=== PATIENT | male | born 1995 | race Caucasian/White ===

== ENCOUNTER 2025-07-07 13:48 | Emergency (ER) | payer OTHER, SELFPAY ==
--- OUTSIDE RECORDS SUMMARY | 2025-06-29 20:18 | XMS_ITS | Encounter Summary ---
Author Organization [facility] tem Address [facility]-[id number] [address] [place] [address] Care Team Providers Care County Nurse Name Role Phone No Pcp, No Pcp Primary Care Provider Unavailabl e Reason for Referral * Consultation (Urgent) - Pending Review Specialty Diagnoses / Procedures Referred By Ortega begr Referred To Contact Wound Care Diagnoses Ankle wound, left, initial encounter Sandy Dumont, INSERT MOLDING OPERATOR-FLEXIBLE MACHINING SYSTEM MACHINIST [address] [place] [address] Phone: tel: fax: Duyen Choudhury, INSERT MOLDING OPERATOR-FLEXIBLE MACHINING SYSTEM MACHINIST [address] [address] Phone: tel: fax: Referral ID Status Reason Start Date Expiration Date Visits Requested Visits Authorized [id number] Pending Review Specialty Services Required 06/29/2025 06/29/2026 1 1 Electronically signed by Sandy Dumont, INSERT MOLDING OPERATOR-FLEXIBLE MACHINING SYSTEM MACHINIST at 06/29/2025 8:40 PM EDT Reason for Visit * Reason Comments Wound Check Encounter Details Date Type Department Care Team (Late st Contact Info) Description 06/29/2025 8:18 PM EDT - 06/29/2025 8:50 PM EDT Emergency [facility] - Emergency [address] [place] [address] Ankle wound, left, initial encounter (Primary Dx) Discharge Disposition: Another Institution Social History Tobacco Use Types Packs/Day Years Used Date Smoking Tobacco: Every Day Cigarettes Smokeless Tobacco: Never Tobacco Cessation:Ready to Q uit: Not Asked; Counseling Given: Not Answered Alcohol Use Standard Drinks/Week Comments Not Currently 0 (1 standard drink = 0.6 oz pur e alcohol) Hunger Screening Answer Date Recorded Within the past 12 months we worried whether our food would run out before we got money to buy more. Never True 06/29/2025 Within the past 12 months th e food we bought just didn't last and we didn't have money to get more. Never True 06/29/2025 Sex and Gender Information Value Date Recorded Sex Assigned at Not on file Legal Sex Male 8:15 PM EDT Gender Identity Not on file Sexual Orientation Not on file documented as of this encounter Last Filed Vital Signs Vital Sign Reading Time Taken Comments Blood Pressure 130/78 06/29/2025 8:45 PM EDT Pulse 80 06/29/2025 8:24 PM EDT Temperature 36.7 C (98 F) 06/29/2025 8:24 PM EDT Respiratory Rate 18 06/29/2025 8:24 PM EDT Oxygen Saturation 98% 06/29/2025 8:45 PM EDT Inhaled Oxygen Concentration - - Weight 97.5 kg (215 lb) 06/29/2025 8:24 PM EDT Height 175.3 cm (5' 9 ) 06/29/2025 8:24 PM EDT Body Mass Index 31.75 06/29/2025 8:24 PM EDT documented in this encounter Discharge Instructions * Discharge Instructions* DOMONIQUE Birch - 06/29/2025 8:41 PM EDT Continue your antibiotics With gentle soap and water daily Cover open Wounds and change dressing daily Please follow-up with Wound Care call for appointment Return to ER immediately for new worse or worrisome concerns documented in this encounter ED Notes * DOMONIQUE Birch - 06/29/2025 8:42 PM EDT Images from the original note were not included. [facility] - EMERGENCY Pt Name: Norris Horne Birthdate: 1995 Chief Complaint: Chief Complaint Patient presents with Wound Check History of Present Illness: Patient here for evaluation of wounds on his lower extremities. [facility] He had originally been treated in [facility]. He reports he has had these wounds in his legs for about 4 months. He has also been taking antibiotics for over a monthbut he can not tell me which 1. 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 Patient adamantly denies ever injecting any medications or skin popping. He does admit to smoking. He is not a diabetic. Reports he was [facility] Past Medical History: Past Medical History: Diagnosis Date DVT (deep venous thrombosis) ([facility]) Pulmonary embolism ([facility]) Past Surgical History: History reviewed. No pertinent surgical history. Family History: History reviewed. No pertinent family history. Social History: Social History Socioeconomic History Marital status: Single Tobacco Use Smoking status: Every Day Types: Cigarettes Smokeless tobacco: Never Vaping Use Vaping status: Never Used Substance and Sexual Activity Alcohol use: Not Currently Drug use: Not Currently Types: Methamphetamines Sexual activity: Defer Social Drivers of Health Food Insecurity: No Food Insecurity (06/29/2025) Hunger Screening Food Insecurity - Worry: Never True Food Insecurity - Inability: Never True Transportation Needs: No Transportation Needs (09/13/2024) Received from [facility] PRAPARE - Transportation Lack of Transportation (Medical): No Lack of Transportation (Non-Medical): No Housing Instability: Unknown (09/13/2024) Received from [facility] Housing Stability Vital Sign Unable to Pay for Housing in the Last Year: No Homeless in the Last Year: No Review of Systems: Review of Systems Physical Exam: ED Triage Vitals [06/29/252023] Temp Heart Rate Resp BP SpO2 36.7 ??C (98 ??F) 80 18 142/78 100 % Temp Source Heart Rate Source Patient Position BP Location FiO2 (%) Oral Pulse Ox Semi-fowlers Left arm -- Vitals: 06/29/252023 BP: 142/78 Temp: 36.7 ??C (98 ??F) TempSrc: Oral Pulse: 80 Resp: 18 SpO2: 100% Height: 175.3 cm (5' 9 ) Weight: 97.5 kg (215 lb) Physical Exam Vitals reviewed. Constitutional: Appearance: He is obese. HENT: Head: Normocephalic and atraumatic. Eyes: Conjunctiva/sclera: Conjunctivae normal. Cardiovascular: Rate and Rhythm: Normal rate. Pulmonary: Effort: Pulmonary effort is normal. Breath sounds: Normal breath sounds. Abdominal: General: There is no distension. Palpations: Abdomen is soft. Musculoskeletal: General: Normal range of motion. Cervical back: Normal range of motion and neck supple. Skin: General: Skin is warm and dry. Comments: He has a few scabbed lesions that appear to be healing well. He does have some open wounds particularly in the area of the left lateral foot and ankle. No erythema. No purulent drainage. Extremities are warm DP PT pulses are palpable Neurological: General: No focal deficit present. Mental Status: He is alert and oriented to person, place, and time. GCS: GCS eye subscore is 4. GCS verbal subscore is 5. GCS motor subscore is 6. Procedure: Procedures Re-evaluation: Re-Evaluation Medical Decision Making Patient here for 4 months of lower extremity wounds. It sounds like he was treated in another facility far from here but discharged to rehabilitation for substance abuse here in [place]. His treatment facility sent him over here for evaluation. Most of the lesions look like they are scabbed and healing well. He does have some on the left lateral foot and ankle that would benefit from continued wound care. None of them look acutely infected. I advised the patient to keep his open wounds covered,continue his antibiotics, and he was given urgent ambulatory referral to local wound care. He was instructed to call tomorrow but return in the meantime for new worse or worrisome concerns. Patient verbalized understanding in his agreeable to plan of care Risk OTC drugs. Diagnosis or treatment significantly limited by social determinants of health. ED Course: Clinical Impressions as of 06/29/252044 Ankle wound, left, initial encounter . ED Disposition ED Disposition Discharge Date/Time [facility] Jun 29, 2025 8:41 PM Comment At the time of discharge, the plan has been discussed with the patient regarding the diagnosis and prognosis. All questions have been answered. Verbal discharge instructions were discussed with the patient. The patient has been advised to follow up w ith their Specialist within 1 week. The patient was also instructed to return to the ED if their symptoms change, worsen, new symptoms arise or if they have any additional concerns. MADHURI Supervision Only Supervising Physician was Dr. Kelley Gonzalez Please note that portions of this note were completed with a voice recognition program. Efforts were made to edit the dictations but occasionally words are mis-transcribed. DOMONIQUE Birch 06/29/252044 * Phylicia Pitt RN - 06/29/2025 8:25 PM EDT Pt has wouunds on bilateral lower extremities documented in this encounter Plan of Treatment Scheduled Referrals Name Type Priority Associated Diagnoses Order Schedule Ambulatory referral to Wound Care (Non-[facility]) Outpatient Referral Routine Ankle wound, left, initial encounter 1 Occurrences starting 06/29/2025 until 06/29/2026 documented as of this encounter Visit Diagnoses Diagnosis Ankle wound, left, initial encounter- Primary documented in this encounter Care Teams County Nurse Relationship Specialty Start Date End Date No Pcp, [place] [address] PCP - General Family Medicine 06/29/25 documented as of this encounter
[2025-07-07] VITALS (13 sets, daily range): BP systolic 128–134; BP diastolic 80–108; PULSE 76–96; O2SAT 96–100; BMI 31.5
--- NOTE | 2025-07-07 14:01 | CT_ITS ---
[facility] [place] [id number] Patient Name: IDALIA HANCOCK MRN: [id number] date: 1995 Sex: M Assigned Patient Location: ER Current Patient Location: [facility] Accession/Order Number: [id number] Exam Date: 07/07/2025 15:33 Report Date: 07/07/2025 15:59 At the request of: SLAAS BOWLING Procedure: CT head/brain wo con CT head/brain wo con 07/07/2025 3:38 PM SIGNS AND SYMPTOMS: Transient vision loss TECHNIQUE:Multi-detector CT axial slices of the brain were obtained without IV contrast. CT was performed with one or more of the following dose reduction techniques: Automated exposure control, adjustment of the mA and/or kV according to patient size, or use of iterative reconstruction technique. COMPARISON: None. FINDINGS: There is no shift of the midline structures, acute intracranial bleeding, mass effects, or evidence of acute ischemia. The ventricular system is normal in size. The brainstem and the cerebellum are unremarkable. There is an air-fluid level in the left maxillary sinus. The visualized intraorbital contents and the infratemporal soft tissues show no acute abnormality. The osseous structures in the skull base and the calvarium show no abnormality. CT/CT head/brain wo con IMPRESSION: No acute intracranial pathology. There is an air-fluid level in the left maxillary sinus. This may represents sequelae of acute sinusitis. Impression dictated by: Clinton Puri M.D. 07/07/2025 3:59 PM Dictation Location: [employer] Electronically authenticated by: [id number] Y Date: 07/07/2025 15:59
--- OUTSIDE RECORDS SUMMARY | 2025-07-07 14:02 | XMS_ITS | Encounter Summary ---
Author Organization [facility] Address [address] [place] [address] Care Team Providers Care Lay Out Maker Name Role Phone Osvaldo Esqueda APN Primary Care Provider Encounter Details Date Type Department Care Team (Late st Contact Info) Description 07/07/2025 Telephone [facility] [address] [facility] [address]nd [place] [address] Eboni Royal RN [address] [place] [phone] Social History Tobacco Use Types Packs/Day Years Used Date Smoking Tobacco: Never Assessed Sex and Gender Information Value Date Recorded Sex Assigned at Not on file Legal Sex Male 11:06 PM EST Gender Identity Not on file Sexual Orientation Not on file documented as of this encounter Miscellaneous Notes * Telephone Encounter - Eboni Royal RN - 07/07/2025 1:56 PM EDT Images from the original note were not included. 06/13/24 * Telephone Encounter - Eboni Royal RN - 07/07/2025 1:02 PM EDT RULA Pisano (provided outpatient code) called stating Norris is in treatment facility up by [id number] and clean now. He is having issues with blacking out. This morning blacked out even before getting out of bed. He is not allowed cell phone in rehab. Out of withdrawal phase. Saw doctor there at facility for blackouts and told to call his entertainment director. Local cards appt down in [place] 07/13/25. Norris asked MOP to get MRI scheduled that Dr. Kellogg ordered. When she called [facility] there was no order. I let her know I will check with team and call back. documented in this encounter Plan of Treatment Not on file documented as of this encounter Visit Diagnoses Not on filedocumented in this encounter Care Teams Lay Out Maker Relationship Specialty Start Date End Date Osvaldo Esqueda APN [address] [place], [place] [address] [address] PCP - General Nurse Practitioner 10/23/11 documented as of this encounter
--- OUTSIDE RECORDS SUMMARY | 2025-07-07 14:02 | XMS_ITS | Clinical Summary ---
Author Organization [facility] tem Address [facility]-[id number] [address] [place] [address] Care Team Providers Care Human Resources Intern Name Role Phone No Pcp, No Pcp Primary Care Provider Unavailabl e Allergies Active Allergy Reactions Criticality Noted Date Comments Penicillins 06/29/2025 Medications No known medications Encounters Date Type Department Care Team Description 06/29/2025 8:18 PM EDT - 06/29/2025 8:50 PM EDT Emergency [facility] - Emergency [address] [place] [address] Ankle wound, left, initial encounter (Primary Dx) Discharge Disposition: Another Institution 06/29/2025 Travel from Last 3 Months Social History Tobacco Use Types Packs/Day Years [...] on file Sexual Orientation Not on file Last Filed Vital Signs Vital Sign Reading [...] Mass Index 31.75 06/29/2025 8:24 PM EDT Plan of Treatment Not on file Medical Devices Not on file Insurance [employer] Care Teams Human Resources Intern Relationship Specialty Start Date End Date No Pcp, [place] [address] PCP - General Family Medicine 06/29/25
--- OUTSIDE RECORDS SUMMARY | 2025-07-07 14:02 | XMS_ITS | Encounter Summary ---
Author Organization [facility] tem Address [id number] [address] [place] [address] Care Team Providers Care Pipe Straightener Name Role Phone No Pcp, No Pcp Primary Care Provider Unavailabl e Encounter Details Date Type Department Care Team (Latest Contact Info) Description 06/29/2025 Travel Social History Tobacco Use Types Packs/Day Years Used Date Smoking Tobacco: Every Day Cigarettes Smokeless Tobacco: Never Alcohol Use Standard Drinks/Week Comments Not Currently [...] on file documented as of this encounter Plan of Treatment Not on file documented as of this encounter Visit Diagnoses Not on filedocumented in this encounter Care Teams Pipe Straightener Relationship Specialty Start Date End Date No Pcp, [place] [address] PCP - General Family Medicine 06/29/25 documented as of this encounter
--- OUTSIDE RECORDS SUMMARY | 2025-07-07 14:02 | XMS_ITS | Clinical Summary ---
Author Organization [facility] Address [address] [place] [address] Care Team Providers Care Salvage Winder Name Role Phone No, Physician Primary Care Provider Unavailabl e Allergies Active Allergy Reactions Criticality Noted Date Comments Penicillin G Hives 12/01/2020 Medications ferrous sulfate 325 (65 FE) MG tablet Take 1 (one) tablet (325 mg total) by mouth daily with breakfast . 30 tablet Active Active Problems Problem Noted Date Diagnosed Date Fever and chills 12/01/2020 Social History Tobacco Use Types Packs/Day Years Used Date Smoking Tobacco: Every Day Cigarettes Smokeless Tobacco: Never Alcohol Use Standard Drinks/Week Comments Not Currently 0 (1 standard drink = 0.6 oz pur e alcohol) Sex and Gender Information Value Date Recorded Sex Assigned at Not on file Legal Sex Male 6:37 AM EST Gender Identity Not on file Sexual Orientation Not on file Last Filed Vital Signs Vital Sign Reading Time Taken Comments Blood Pressure 121/74 12/02/2020 8:04 AM EST Pulse 79 12/02/2020 8:04 AM EST Temperature 36.9 C (98.5 F) 12/02/2020 8:04 AM EST Respiratory Rate 12 12/02/2020 8:04 AM EST Oxygen Saturation 97% 12/02/2020 8:04 AM EST Inhaled Oxygen Concentration - - Weight 81.6 kg (180 lb) 12/01/2020 9:55 AM EST Height 177.8 cm (5' 10 ) 12/01/2020 9:55 AM EST Body Mass Index 25.83 12/01/2020 9:55 AM EST Plan of Treatment Health Maintenance Due Date Last Done Comments Tetanus: Every 10yrs 1995 Wellness Visit 1997 Depression Screening/Follow- Up (PHQ-2/9) 2006 HIV Screening 2009 Hepatitis C Screening 2012 COVID-19 Vaccine (2023-2 5 season) 2024 Influenza Vaccine (#1) 2025 Pneumococcal Vaccine: Ped or At-Risk Aged Out No longer eligible b ased on patient's age to complete this topic Insurance [employer] [place] [employer] [place] Advance Directives For more information, please contact: [phone] * Full Code (Latest Code Status on File) Date Activated Date Inactivated Comments 12/01/2020 1:17 PM 12/02/2020 3:51 PM Care Teams Salvage Winder Relationship Specialty Start Date End Date No, Physician [facility] PCP - General 12/01/20
--- NOTE | 2025-07-07 14:48 | ECG_ITS ---
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
--- NOTE | 2025-07-07 15:51 | ED_ITS ---
HPI HPI - General Adult General Chief complaint: Syncope Stated complaint: SYNCOPE Time Seen by Provider: 07/07/25 13:54 Source: patient Mode of arrival: walk-in Limitations: no limitations History of Present Illness HPI narrative: 30-year-old male presents to the ED with concern for vision changes. While in therapy earlier today, he developed sudden onset of fuzzy vision, followed by complete loss of vision lasting approximately 2?3 minutes. His vision then returned but has not felt normal since. He denies headache, dizziness, lightheadedness, syncope, seizure activity, or recent head trauma. No chest pain, shortness of breath, abdominal pain, nausea, vomiting, or diarrhea. No eye pain, flashes, floaters, or pressure behind the eyes. No rhinorrhea, ear pain, or sore throat. He has a history of IV drug use and is currently in rehab. 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 He has previously been on spironolactone and Lasix for pedal edema but has since discontinued these medications. Patient reports he has been attempting to maintain normal oral intake but does feel mildly dehydrated. No interventions were attempted prior to arrival. Related Data Home Medications ?Medication ?Instructions ?Recorded ?Confirmed furosemide 20 mg tablet 20 mg PO DAILY 07/07/2506/10 melatonin 10 mg capsule 10 mg PO BEDTIME 07/07/25 rivaroxaban 20 mg tablet (Xarelto) 20 mg PO DAILY 06/1007/07/25 spironolactone 25 mg tablet 50 mg PO DAILY 07/07/25 Allergies Allergy/AdvReac Type Severity Reaction Status Date / Time Penicillins Allergy Unknown Unknown Verified 07/07/25 13:58 Opioid HPI Opioid Management Most Recent Opioid Data: Last Pain Scale 0 Today, 14:10 PFSH PFSH Social History Little interest or pleasure in doing things: not at all Feeling down, depressed, or hopeless: not at all Exam Narrative Exam Narrative: Exam: * General: Alert, oriented, no acute distress. * HEENT: Head atraumatic, normocephalic. Pupils equal, round, and reactive to light. Extraocular movements intact. Visual acuity 20/20 bilaterally (monocu lar and binocular). Visual cabral intact. Intraocular pressures: R 16?18, L 16?18. No evidence of retinal detachment. No temporal tenderness. Oropharynx clear, no nasal drainage, no ear pain. * Cardiac: Regular rate and rhythm, no murmurs appreciated, including with Valsalva. Peripheral pulses intact. * Pulmonary: Clear to auscultation bilaterally, no wheezes, rales, or rhonchi. Normal work of breathing. * Abdomen: Soft, non-tender, non-distended. No guarding or rebound. * Neuro: Alert and oriented x3. Speech clear. Cranial nerves II?XII grossly intact. No motor or sensory deficits. Normal gait observed. * Extremities: No acute swelling or deformity. * Skin: IV site infiltration with localized swelling, tender to palpation, no blistering or neurovascular compromise. Otherwise warm and dry. Constitutional Vital Signs, click to edit/add: Last Vital Signs Pulse 84 07/07/25 18:51 Resp 20 07/07/25 18:51 BP 128/80 07/07/25 18:51 Pulse Ox 97 07/07/25 18:51 O2 Del Method Room Air 07/07/25 18:51 Eye Visual acuity: acuity normal Pupil: PERRL EOM: EOM abnormal Direct Ophthalmoscopy: normal light reflex Course Vital Signs Vital signs: Vital Signs Pulse Rate 96 H 07/07/25 13:52 Respiratory Rate 16 07/07/25 13:52 Blood Pressure 134/108 H 07/07/25 13:52 Pulse Oximetry 96 07/07/25 13:52 Oxygen Delivery Method Room Air 07/07/25 13:52 Pulse Rate 84 07/07/25 18:51 Respiratory Rate 20 07/07/25 18:51 Blood Pressure 128/80 07/07/25 18:51 Pulse Oximetry 97 07/07/25 18:51 Oxygen Delivery Method Room Air 07/07/25 18:51 Medical Decision Making MDM Narrative Medical decision making narrative: 30-year-old male with history of IV drug use, prior DVTs on Xarelto, and chronic lower extremity edema presented with transient vision loss lasting 2?3 minutes followed by persistent mild disturbance. On arrival he was alert, hemodynamically stable, and asymptomatic. Exam was reassuring with normal visual acuity, intact visual cabral, reactive pupils, normal intraocular pressures, and no evidence of retinal detachment. Neurologic exam was nonfocal. Cardiac, pulmonary, and abdominal exams were unremarkable. Workup included basic laboratory studies, which showed no gross abnormalities, and non-contrast CT head, which was negative for acute intracranial process. No evidence of giant cell arteritis or other acute ophthalmologic emergency was noted. CTA was considered however usin shared decision making, patient would like to not have the CTA at this time. Differential diagnosis considered included TIA, ocular migraine, transient ischemic event of the optic nerve/retina, or medication/dehydration-related cause. No findings to suggest acute stroke, intracranial hemorrhage, or seizure. During ED stay, patient remained clinically stable without recurrence of symptoms. Case was discussed with Dr. Rodriguez (ED attending). Patient was counseled on the importance of close ophthalmology follow-up this week and was given strict return precautions for recurrent vision loss, new neurologic symptoms, or worsening condition. ED course was complicated by IV infiltration during contrast administration. The site was swollen and tender but without evidence of neurovascular compromise. Treated with ice and elevation. Patient was provided home care instructions and return precautions regarding IV site complications. At discharge, patient was asymptomatic, vision stable, and safe for outpatient management. Medical Records Medical records reviewed: Yes I reviewed the patient's medical records Lab Data Lab results reviewed: Yes I reviewed the patient's lab results Labs: Lab Results 07/07/25 07/07/25 Range/Units 17:12 17:55 WBC 6.4 (4.0-11.0) 10^3/uL RBC 4.77 (4.70-6.10) 10^6/uL Hgb 12.7 L (14.0-18.0) g/dL Hct 37.9 L (42.0-54.0) % MCV 79.5 L (80.0-94.0) fL MCH 26.6 (25.9-34.0) pg MCHC 33.5 (29.9-35.2) g/dL RDW 15.6 H (11.0-15.0) % Plt Count 296 (150-450) 10^3/uL MPV 10.2 (9.5-13.5) fL Neut % (Auto) 37.8 L (43.0-75.0) % Lymph % (Auto) 46.2 (20.5-60.0) % [place] % (Auto) 15.4 H (1.7-12.0) % Eos % (Auto) 0.2 L (0.9-7.0) % Baso % (Auto) 0.2 (0.2-2.0) % Neut # (Auto) 2.4 (1.4-6.5) 10^3/uL Lymph # (Auto) 2.9 (1.2-3.8) 10^3/uL [place] # (Auto) 1.0 H (0.3-0.8) 10^3/uL Eos # (Auto) 0.0 (0.0-0.7) 10^3/uL Baso # (Auto) 0.0 (0.0-0.1) 10^3/uL Abs Immat Gran (auto) 0.01 (0.00-0.03) 10^3/uL Imm/Tot Granulo (auto) 0.2 (0.0-0.5) % ESR 44 H (<=15) mm/hr Sodium 141 (136-145) mmol/L Potassium 5.5 H (3.5-5.1) mmol/L Chloride 106 (98-107) mmol/L Carbon Dioxide 21.9 (21.0-32.0) mmol/L Anion Gap 18.6 BUN 23.0 H (7.0-18.0) mg/dL Creatinine 0.58 L (0.70-1.30) mg/dL Est GFR ( Amer) >60 (>=60 mL/min/1.73m^2) Est GFR (Non-Af Amer) >60 (>=60 mL/min/1.73m^2) BUN/Creatinine Ratio 39.7 Glucose 89 (74-106) mg/dL Calcium 9.4 (8.5-10.1) mg/dL Total Bilirubin 0.3 (0.2-1.0) mg/dL Direct Bilirubin 0.1 (0.0-0.2) mg/dL AST 29 (15-37) U/L ALT 43 (16-63) U/L Alkaline Phosphatase 158 H (46-116) U/L C-Reactive Protein <0.50 (<=0.50) mg/dL Total Protein 9.0 H (6.4-8.2) g/dL Albumin 4.1 (3.4-5.0) g/dL Globulin 4.9 g/dL Albumin/Globulin Ratio 0.8 Discharge Plan Discharge Chief Complaint: Syncope Clinical Impression: Transient visual loss of both eyes, Extravasation of intravenous contrast medium Patient Disposition: Home, Self-Care Time of Disposition Decision: 18:29 Condition: Good Prescriptions / Home Meds: No Action furosemide 20 mg tablet 20 mg PO DAILY melatonin 10 mg capsule 10 mg PO BEDTIME Xarelto 20 mg tablet 20 mg PO DAILY spironolactone 25 mg tablet 50 mg PO DAILY Print Language: [place] Citizen Instructions: Extravasation (DC) Additional Instructions: Discharge Instructions: Transient Vision Loss Your evaluation in the Emergency Department today included blood work and imaging, which did not show any signs of stroke, bleeding, or other urgent problems. At this time, your vision changes are considered transient (temporary) and may need further evaluation by an clerical support specialist. What to do at home: * Schedule and attend follow-up with an dextrine mixer (eye doctor) as soon as possible for further evaluation. * Continue taking your regular medications as prescribed. * Stay well hydrated and get adequate rest. * Do not drive until cleared by your doctor if your vision is not back to normal. Return to the ER immediately if you develop: * Sudden or complete loss of vision in one or both eyes * New flashes, floaters, or a curtain-like shadow across your vision * Severe headache, weakness, numbness, difficulty speaking, or trouble walking * Chest pain, shortness of breath, or fainting Discharge Instructions: IV Contrast Infiltration During your visit, some of the IV contrast fluid leaked outside of your vein into the surrounding tissue (called an infiltration). This can cause local swelling, discomfort, or irritation. What to do at home: * Elevate the affected arm above heart level as much as possible for the next 24 hours. * Apply warm compresses (a warm, moist towel) to the area for 15?20 minutes at a time, 3?4 times per day, unless instructed otherwise. * Mild swelling, redness, or discomfort may occur and usually improves over a few days. Return to the ER immediately if you notice: * Increasing pain, swelling, or tightness in the arm or hand * Blistering of the skin * Numbness, tingling, or inability to move fingers * Skin turning pale, cold, or blue Referrals: Physician,Non-Staff, MD [Primary Care Provider] - 1 week Discharge Date/Time: 07/07/25 19:24
[2025-07-07 17:17] LABS: Hematocrit 37.9 % (42.0-54.0); Hemoglobin 12.7 g/dL (14.0-18.0); Immature Granulocytes Abs Auto 0.01 10^3/uL (0.00-0.03); Immature Granulocytes Pct Auto 0.2 % (0.0-0.5); Lymphocytes Absolute Auto 2.9 10^3/uL (1.2-3.8); Mean Corpuscular HGB Conc 33.5 g/dL (29.9-35.2); Mean Corpuscular Hemoglobin 26.6 pg (25.9-34.0); Mean Corpuscular Volume 79.5 fL (80.0-94.0); Platelet Count 296 10^3/uL (150-450); Red Blood Count 4.77 10^6/uL (4.70-6.10); White Blood Count 6.4 10^3/uL (4.0-11.0)
[2025-07-07] MEDS: TETRACAINE HCL 0.5% OP SOL 80 DROP/4 ML BOTTLE OP (18:04)
[2025-07-07 18:14] LABS: Alanine Aminotransferase 43 U/L (16-63); Albumin Globulin Ratio 0.8; Albumin Level 4.1 g/dL (3.4-5.0); Alkaline Phosphatase 158 U/L (46-116); Anion Gap 18.6; Aspartate Amino Transferase 29 U/L (15-37); Blood Urea Nitrogen 23.0 mg/dL (7.0-18.0); Calcium 9.4 mg/dL (8.5-10.1); Carbon Dioxide 21.9 mmol/L (21.0-32.0); Chloride 106 mmol/L (98-107); Estimated GFR (African America >60 (>=60 mL/min/1.73m^2); Estimated GFR (Non-African Ame >60 (>=60 mL/min/1.73m^2); Globulin 4.9 g/dL; Glucose 89 mg/dL (74-106); Potassium 5.5 mmol/L (3.5-5.1); Sodium 141 mmol/L (136-145); Total Protein 9.0 g/dL (6.4-8.2)
== END 2025-07-07 19:24 | disposition home or self-care (01) ==
PROVIDERS: Physician Assistant; Emergency Provider Student in an Organized Health Care Education/Training Program
DX: H53.123 Transient visual loss, bilateral (principal); T80.89XA Other complications following infusion, transfusion and therapeutic injection, initial encounter; Z86.718 Personal history of other venous thrombosis and embolism; Z79.01 Long term (current) use of anticoagulants
CPT/HCPCS: 36415; 70450; 80048; 80076; 85025; 85610; 85652; 86140; 93005; 99285